=== PATIENT | female | born 1975 | race Caucasian/White ===

== ENCOUNTER 2019-04-11 15:31 | Emergency (ER) | payer BC, OTHER ==
[~2019-04-11] VITALS: Ht 157.5 cm; Wt 63.5 kg
[2019-04-11 15:31] VITALS: BP_SYST 147
--- NOTE | 2019-04-11 15:32 | NUR ---
BROUGHT IN BY [facility], PLACED IN BED #3, TRIAGED AND REPORT GIVEN TO WILFREDO
--- NOTE | 2019-04-11 15:35 | NUR ---
KECIA MOTTA at bedside examining patient.
--- NOTE | 2019-04-11 15:39 | NUR ---
KECIA Henry at bedside examining patient.
[2019-04-11] MEDS ORDERED: METOCLOPRAMIDE HCL 10 MG/2 ML VIAL IVP ONE (15:45)
[2019-04-11] MEDS ORDERED: NACL 0.9% 1,000 ML IV ONE (15:45)
--- NOTE | 2019-04-11 15:58 | NUR ---
Patient BIB BLS for dizziness. Patient A&Ox4, afebrile, skin pink and warm, speaking in full sentences, nausea, vomiting, denies diarrhea, denies pain. Patient states dizziness with nausea started to 1300, while at work. Patient states dizziness, nausea got worse while driving home, patient pulled over at [facility] and called for EMS. Patient c/o Dizziness, N/V and weakness, otherwise no health hx to report.
[2019-04-11] MEDS ORDERED: MECLIZINE HCL 25 MG TABLET (ANITVERT) PO ONE (16:00)
[2019-04-11 16:36] LABS: BASOPHILS # (AUTO) 0.1 K/uL (0.0-0.2); BASOPHILS % (AUTO) 0.7 % (0.0-2.0); EOSINOPHILS # (AUTO) 0.1 K/uL (0.0-0.4); EOSINOPHILS % (AUTO) 1.7 % (0.0-4.0); HEMATOCRIT 39.2 % (36-48); HEMOGLOBIN 13.3 g/dL (12.0-16.0); LYMPHOCYTES # (AUTO) 1.9 K/uL (1.0-5.5); LYMPHOCYTES % (AUTO) 22.1 % (20.5-51.5); MEAN CORPUSCULAR HEMOGLOBIN 31 pg (27-31); MEAN CORPUSCULAR HGB CONC 34 % (32-36); MEAN CORPUSCULAR VOLUME 92 fL (79.0-98.0); MONOCYTES # (AUTO) 0.4 K/uL (0.0-1.0); NEUTROPHILS # (AUTO) 6.1 K/uL (1.8-7.7); NEUTROPHILS % (AUTO) 70.5 % (40.0-70.0); PLATELET COUNT (AUTO) 269 K/uL (130-430); RED BLOOD CELL COUNT(AUTO) 4.25 MIL/uL (4.2-6.2); RED CELL DISTRIBUTION WIDTH 12.4 % (9.0-15.0); WHITE BLOOD COUNT (AUTO) 8.7 K/uL (4.8-10.8)
[2019-04-11 16:48] LABS: CALCIUM 7.9 mg/dL (8.4-11.0); CREATININE 0.93 mg/dL (0.55-1.30); POTASSIUM 3.4 mmol/L (3.5-5.1)
[2019-04-11 16:53] LABS: ALBUMIN 3.7 g/dL (3.4-4.8); TOTAL BILIRUBIN 0.2 mg/dL (0.0-1.0)
[2019-04-11 17:16] VITALS: BP_SYST 144
--- NOTE | 2019-04-11 17:16 | NUR ---
Patient given written and verbal discharge instructions and verbalizes understanding. ER MD discussed with patient the results and treatment provided. Patient in stable condition. ID arm band removed. IV catheter removed intact and dressing applied, no active bleeding. Rx of MECLIZINE & REGLAN given. Patient educated on pain management and to follow up with PMD. Pain Scale 0/10 . Opportunity for questions provided and answered. Medication side effect fact sheet provided.
== END 2019-04-11 17:16 | disposition home or self-care (01) ==
LOC: SED 15:31
DX: R42 Dizziness and giddiness (principal); R11.2 Nausea with vomiting, unspecified
CPT/HCPCS: 36415; 80053; 85025; 86710; 96361; 96374; 99283; J2765; J8597